=== PATIENT | female | born 1925 | race Caucasian/White ===

== ENCOUNTER 2016-11-21 17:03 | Emergency (ER) | payer MEDICARE, BC ==
--- NOTE | 2016-11-21 18:14 | RAD ---
INDICATION: Dizziness. COMPARISON: There are no prior studies available for comparison. TECHNIQUE: A portable view of the chest was obtained. FINDINGS: The heart is mildly enlarged. The lungs are underinflated and clear. No pleural effusion is seen. IMPRESSION: NO EVIDENCE FOR ACUTE FINDING.
[2016-11-21 18:31] LABS: Hematocrit 38 % (35-47); Hemoglobin 11.8 g/dl (12.0-16.0); Mean Corpuscular HGB Conc 31 g/dl (31-36); Mean Corpuscular Hemoglobin 30 pg (27-31); Mean Corpuscular Volume 95 fL (80-97); Mean Platelet Volume 9 um3 (7.4-10.4); Red Blood Count 3.96 10^6/ul (4.0-5.4); Red Cell Distribution Width 14 % (10.5-15); White Blood Count 5.7 10^3/ul (3.5-10.8)
[2016-11-21 18:40] LABS: Troponin I 0.01 ng/mL (<0.04)
--- NOTE | 2016-11-21 18:42 | RAD ---
INDICATION: Syncope. COMPARISON: Comparison is made with a prior CT of the brain from November 01, 2014. TECHNIQUE: Contiguous axial sections of the brain were obtained from the skull base to the vertex without contrast. FINDINGS: The ventricles, cisterns and sulci are enlarged consistent with diffuse atrophy. There are multiple focal areas of decreased density in the subcortical and periventricular white matter suggestive of moderate to severe chronic small vessel ischemic changes. No other focal abnormality or mass effect is seen. There is no evidence for hemorrhage. Soft tissue swelling is noted anterior to the right frontal bone. No fracture is seen. There is increased density in the left maxillary sinus which appears improved from the prior exam. The visualized portion of the paranasal sinuses and mastoid air cells otherwise appear clear. IMPRESSION: 1. NO EVIDENCE FOR ACUTE INTRACRANIAL ABNORMALITY. 2. DIFFUSE ATROPHY AND FINDINGS CONSISTENT WITH MODERATE TO SEVERE CHRONIC SMALL VESSEL ISCHEMIC CHANGES.
[2016-11-21 18:43] LABS: Albumin 3.5 g/dL (3.2-5.2); BUN/Creatinine Ratio 17.2 (8-20); Calcium 8.8 mg/dL (8.6-10.3); EGFR African American 38.2 (>60); EGFR Non-African American 29.7 (>60); Globulin 2.9 g/dL (2-4); Potassium 4.1 mmol/L (3.5-5.0); Total Bilirubin 0.6 mg/dL (0.2-1.0); Total Protein 6.4 g/dL (6.4-8.9)
[2016-11-21 20:08] LABS: Urine Bacteria 1+ (Absent); Urine Bilirubin Negative (Negative); Urine Glucose Negative (Negative); Urine Nitrite Positive (Negative)
[2016-11-21 21:52] VITALS: BP 117/74
--- NOTE | 2016-11-23 09:00 | PN ---
Progress Note - Progress Note Date of Service: 11/21/16 Note: Urine culture grew E. Coli Patient was not placed on abx prior to discharge For this, will await sensitivities prior to placing on abx. Lauryn West PA-C
--- NOTE | 2016-11-24 09:19 | PN ---
Progress Note - Progress Note Date of Service: 11/24/16 Note: Patient urine sensitive to everything. Attempted to call patient and only number provided is not in service. Patient pharmacy also is not on file. Will have send letter telling to call ED so script can be sent. Gave information to bar steward Kenzie.
--- NOTE | 2016-12-08 14:48 | ED ---
Belem Contreras Edward, scribed for Natalio Huizar on 11/21/16 at 1730 . 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 Pt has dementia and is mostly unresponsive in the ED. Pt lives in asst living at [address]. Staff stated pt was transferred to toilet and had a syncopal episode. Pt denies any complaints at this time. She is alert and is able to answer simple yes/no questions upon arrival to ED. - History Of Current Complaint Chief Complaint: EDSyncope Time Seen by Provider: 11/21/16 17:23 Hx From Patient Unobtainable Due To: Dementia - Allergies/Home Medications Allergies/Adverse Reactions: Allergies Allergy/AdvReac Type Severity Reaction Status Date / Time No Known Allergies Allergy Verified 11/21/16 17:38 PMH/Surg Hx/FS Hx/Imm Hx Previously Healthy: No - LEVEL 5 CAVEAT DUE TO DEMENTIA Sensory History: Denies: Hx Contacts or Glasses, Hx Hearing Aid Opthamlomology History: Denies: Hx Contacts or Glasses Neurological History: Reports: Other Neuro Impairments/Disorders - ALZHEIMER'S DISEASE - Cancer History Cancer Type, 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 Infectious Disease History: Unable to Obtain/Confirm Infectious Disease History: Denies: Traveled Outside the [place] in Last 30 Days - Social History Alcohol Use: None Hx Substance Use: No Substance Use Type: Reports: None Hx Tobacco Use: No Smoking Status (MU): Never Smoked Tobacco Review of Systems - ROS Summary Review of Systems Summary: LEVEL 5 CAVEAT DUE TO DEMENTIA Positive: Syncope All Other Systems Reviewed And Are Negative: No Physical Exam - Summary Physical Exam Summary: LEVEL 5 CAVEAT DUE TO DEMENTIA Triage Information Reviewed: Yes Vital Signs On Initial Exam: Initial Vitals BP 113/71 11/21/16 17:12 Vital Signs Reviewed: Yes Appearance: Positive: Well-Appearing, No Pain Distress Skin: Positive: Warm, Skin Color Reflects Adequate Perfusion, Dry Head/Face: Positive: Normal Head/Face Inspection Eyes: Positive: EOMI, [place] ENT: Positive: Normal ENT inspection Neck: Positive: Supple, Nontender Respiratory/Lung Sounds: Positive: Clear to Auscultation, Breath Sounds Present Cardiovascular: Positive: RRR, Pulses are Symmetrical in both Upper and Lower Extremities Abdomen Description: Positive: Nontender, Soft Bowel Sounds: Positive: Present Musculoskeletal: Positive: Limited @ Neurological: Positive: Other - Alert and confused - [place] Coma Scale Coma Scale Total: 12 Diagnostics - Vital Signs Vital Signs Temp Pulse Resp BP Pulse Ox 11/21/16 17:15 97.2 F 65 13 113/71 98 11/21/16 17:14 45 12 76 11/21/16 17:12 113/71 - Laboratory Result Diagrams: 11/21/16 18:15 11/21/16 18:15 Lab Statement: Any lab studies that have been ordered have been reviewed, and results considered in the medical decision making process. - Radiology CXR Xray Interpretation: No Acute Changes - NO EVIDENCE FOR ACUTE FINDINGS. ED PHYSICIAN AGREEABLE. Radiology Interpretation Completed By: Radiologist - CT BRAIN CT CT Interpretation: No Acute Changes - 1. NO EVIDENCE FOR ACUTE INTRACRANIAL ABNORMALITY. 2. DIFFUSE ATROPHY AND FINDINGS CONSISTENT WITH MODERATE TO SEVERE CHRONIC SMALL VESSEL ISCHEMIC CHANGES. CT Interpretation Completed By: Radiologist - EKG 1 EKG Interpretation: 17:41 - SINUS RHYTHM @ 67 BPM. NO ACUTE CHANGES. Course/Dx Assessment/Plan: LEVEL 5 CAVEAT DUE TO DEMENTIA. 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 Pt has dementia and is mostly unresponsive in the ED. [facility]. Staff stated pt was transferred to toilet and had a syncopal episode. Pt denies any complaints at this time. She is alert and is able to answer simple yes/no questions upon arrival to ED. EKG 17:41 - SINUS RHYTHM @ 67 BPM. NO ACUTE CHANGES. CXR SHOWS NO EVIDENCE FOR ACUTE FINDINGS. ED PHYSICIAN AGREEABLE. BRAIN CT SHOWS 1. NO EVIDENCE FOR ACUTE INTRACRANIAL ABNORMALITY. 2. DIFFUSE ATROPHY AND FINDINGS CONSISTENT WITH MODERATE TO SEVERE CHRONIC SMALL VESSEL ISCHEMIC CHANGES. Pt will be signed out to Dr. Ennis at shift change pending UA. - Diagnoses Provider Diagnoses: Syncopal episodes, Fall, Dementia Discharge - Discharge Plan Condition: Stable Disposition: OTHER Discharge Disposition Comment: Pt will be signed out to Dr. Ennis at shift change pending UA. Referrals: Gautam Willingham MD [Primary Care Provider] - The documentation as recorded by the Belem gramajo Edward accurately reflects the service I personally performed and the decisions made by Bhupendra davis Emmanuel.
== END 2016-11-21 20:30 ==
LOC: ED 17:03
DX: R55 Syncope and collapse (principal); X58.XXXA Exposure to other specified factors, initial encounter; G30.9 Alzheimer's disease, unspecified; F02.80 Dementia in other diseases classified elsewhere, unspecified severity, without behavioral disturbance, psychotic disturbance, mood disturbance, and anxiety; N39.0 Urinary tract infection, site not specified; B96.20 Unspecified Escherichia coli [E. coli] as the cause of diseases classified elsewhere
CPT/HCPCS: 36415; 70450; 71010; 80053; 81003; 81015; 83880; 84484; 85025; 85610; 85730; 87077; 87086; 87186; 93005; 99283